=== PATIENT | male | born 1965 | race African-American/Black ===

== ENCOUNTER 2017-03-13 16:14 | Emergency (ER) | payer SELFPAY ==
[~2017-03-13] VITALS: Ht 195.6 cm; Wt 86.0 kg
[~2017-03-13 16:14] MED LIST: CEPHALEXIN500 MG OR; CLARITIN10 M2 PO; LORTAB 5 OR; NEXIUM40 M1 OR; NO HOME MEDS; NO MEDS
[2017-03-13 16:59] LABS: HEMATOCRIT 37.8 % (39.0-50.0); HEMOGLOBIN 12.9 g/dl (14.0-18.0); IMMATURE GRANULOCYTES 0.1 % (0.0-1.0); MEAN CELL VOLUME 89.2 fL CALC (80.0-100.0); MEAN CORPUSCULAR HGB 30.4 pG CALC (26.0-32.0); MEAN CORPUSCULAR HGB CONC 34.1 g/L CALC (32.0-36.0); NEUT# 4.11 thou/uL (1.82-7.42); RED BLOOD COUNT 4.24 mill/uL (4.70-6.10); RED CELL DISTRI WIDTH 13.8 % (11.5-15.5)
[2017-03-13 17:10] LABS: ALBUMIN 4.6 g/dL (3.2-5.0); ALKALINE PHOSPHATASE 95 u/l (38-126); ANION GAP 15 (6-22 (CALC)); BILIRUBIN, TOTAL 1.9 mg/dL (0.0-1.4); BUN 15 mg/dL (9-20); BUN/CREATININE RATIO 13 (12-20 (CALC)); CALCIUM 9.1 mg/dL (8.4-10.2); CARBON DIOXIDE 23 mmol/l (22-30); CHLORIDE 108 mmol/l (95-108); CREATININE 1.2 mg/dL (0.7-1.3); GFR > 60 ML/MIN (>=60 (CALC)); GFR FOR AFR.AMER. > 60 ML/MIN (>=60 (CALC)); GLUCOSE 90 mg/dL (75-110); SGOT/AST 69 u/l (17-59); SGPT/ALT < 6 u/l (21-72); SODIUM 141 mmol/l (137-146); TOTAL PROTEIN 8.7 g/dL (6.3-8.2)
[2017-03-13 17:14] LABS: POTASSIUM 5.2 mmol/l (3.5-5.1)
[2017-03-13 17:22] LABS: MYOGLOBIN 92 ng/mL (0 - 121)
[2017-03-13] MEDS ORDERED: ASPIRIN 81 LOW81 MG PO (17:42)
[2017-03-13 17:44] VITALS: BP 156/94
== END 2017-03-13 17:46 | disposition left against medical advice (07) | DRG 313 ==
LOC: ED 16:14
PROVIDERS: Emergency Medicine
DX: R07.9 Chest pain, unspecified (principal); I10 Essential (primary) hypertension; Z91.19 Patient's noncompliance with other medical treatment and regimen; R94.31 Abnormal electrocardiogram [ECG] [EKG]; F17.200 Nicotine dependence, unspecified, uncomplicated; R06.02 Shortness of breath

== ENCOUNTER 2018-09-20 15:02 | Observation (INO) | payer SELFPAY ==
[~2018-09-20] VITALS: Ht 195.6 cm; Wt 83.0 kg
[~2018-09-20 15:02] MED LIST changes: +ASPIRIN 81 LOW81 MG PO
--- NOTE | 2018-09-20 15:10 | NUR ---
PT IMMEDIATELY TO TX ROOM VIA WC. EKG PERFORMED AND DR PLEITEZ NOTIFIED OF PT STATUS. POSTERIOR EKG PERFORMED.
--- NOTE | 2018-09-20 15:17 | NUR ---
RIGHT SIDED EKG PERFORMED, DR PLEITEZ AT BEDSIDE
--- NOTE | 2018-09-20 15:25 | NUR ---
PT ADVISED OF CURRENT POC AND PENDING LAB RESULTS.
[2018-09-20 15:47] LABS: HEMATOCRIT 38.6 % (39.0-50.0); IMMATURE GRANULOCYTES 0.2 % (0.0-5.0); MEAN CELL VOLUME 91.9 fL CALC (80.0-100.0); MEAN CORPUSCULAR HGB CONC 33.7 g/L CALC (32.0-36.0); NEUT# 4.76 thou/uL (1.82-7.42); RED BLOOD COUNT 4.2 mill/uL (4.70-6.10); RED CELL DISTRI WIDTH 13.6 % (11.5-15.5)
[2018-09-20 15:54] LABS: ALKALINE PHOSPHATASE 63 u/l (38-126); BILIRUBIN, TOTAL 0.6 mg/dL (0.0-1.4); BUN 13 mg/dL (9-20); BUN/CREATININE RATIO 8 (12-20 (CALC)); CARBON DIOXIDE 27 mmol/l (22-30); CHLORIDE 111 mmol/l (95-108); CREATININE 1.7 mg/dL (0.7-1.3); GFR 43 ML/MIN (>=60 (CALC)); GFR FOR AFR.AMER. 51 ML/MIN (>=60 (CALC)); LIPASE 64 u/l (23-300); SGOT/AST 30 u/l (17-59); SODIUM 145 mmol/l (137-146); TOTAL PROTEIN 7.1 g/dL (6.3-8.2)
[2018-09-20 16:03] LABS: ANION GAP 11 (6-22 (CALC)); POTASSIUM 3.7 mmol/l (3.5-5.1)
--- NOTE | 2018-09-20 16:35 | NUR ---
PT REPORTS PAIN IS 6/10. ADVISED OF CONTINUED WAIT TIME, PT VERBALIZES UNDERSTANDING. CALL LIGHT IN REACH.
[2018-09-20 17:10] LABS: BARBITURATES NEGATIVE (NEGATIVE); COCAINE NEGATIVE (NEGATIVE); METHADONE NEGATIVE (NEGATIVE); TETRAHYDROCANNABIONOL POSITIVE (NEGATIVE); TRICYLIC ANTIDEPRESSANTS NEGATIVE (NEGATIVE)
[2018-09-20 17:11] LABS: OXCYCODONE NEGATIVE (NEGATIVE)
--- NOTE | 2018-09-20 17:29 | NUR ---
SECOND TROPONIN OBTAINED. PT ADVISED OF WAIT TIME. MEAL TRAY ORDERED FOR PT.
[2018-09-20] MEDS ORDERED: PROTONIX40 M2 PO (18:02)
--- NOTE | 2018-09-20 19:07 | NUR ---
REPORT PROVIDED TO NILDA NURSE ON [facility].
[2018-09-20 19:50] VITALS: BP 166/93
--- NOTE | 2018-09-20 19:50 | NUR ---
PT ARRIVED TO FLOOR AT 1910.PT ALERT AND ORIENTED. ABLE TO VOICE NEEDS. PT AMBULATORY. NO SKIN ISSUES NOTED. LUNGS CLLEAR IN ALL SINGER. PULSES STRNG. PT DENIED CHEST PAIN AT THIS TIME. TELE IN PLACE. ASSESSMENT COMPLETED. BED IN LOWEST POSITION AND CALL LIGHT WITHIN REACH
--- NOTE | 2018-09-20 19:50 | NUR ---
PT COND STGABLE. PT TO 283 WITH RN ON TELE.
[2018-09-21] VITALS (7 sets, daily range): BP systolic 135–165; BP diastolic 78–91
--- NOTE | 2018-09-21 04:37 | NUR ---
PT RESTING IN BED WITH EYES CLOSED. BED IN LOWST POSITION.
[2018-09-21 06:27] LABS: CHOLESTEROL HDL RATIO 3.4 (<4.4 (CALC)); MAGNESIUM 1.8 mg/dL (1.6-2.3)
--- NOTE | 2018-09-21 06:41 | NUR ---
T RESTING IN BED EYES CLOSED. PT DENIES CHEST PAIN. BED IN LOWEST POSITION. CALL LIGHT IN REACH.
--- NOTE | 2018-09-21 07:10 | NUR ---
REPORT RECEIVED FROM JORGE LUIS SALCEDO;PT APPEARS TO BE SLEEPING IN LEFT SIDE LAYING POSITION;RESPIRATIONS EVEN AND UNLABORED ON RA;NO S/S OF DISTRESS NOTED;TELE MONITOR IN PLACE;FALL PRECAUTIONS NOTED WITH BED IN THE LOWEST POSITION;CALL LIGHT IN REACH;WILL CONTINUE TO MONITOR
--- NOTE | 2018-09-21 08:25 | NUR ---
PT RESTING IN BED EATING BREAKFAST;VS OBTAINED AND ASSESSMENT COMPLETED;PT DENIES ANY CURRENT PAIN OR DISCOMFORTS,PAIN SCALE AND REPORTING EDUCATED;RESPIRATIONS EVEN AND UNLABORED ON RA,CLEAR LUNG SOUNDS;ABDOMEN SOFT ON PALPATION AND ACTIVE IN ALL 4 QUADRANTS;STRONG PEDAL PULSES;SKIN INTACT;TELE MONITOR IN PLACE;#18G TO LAC FLUSHED AND PATENT,SITE APPEARS HEALTHY;ALL SAFETY PRECAUTIONS REINFORCED WITH BED IN THE LOWEST POSITION;PT DENIES ANY ADDITIONAL NEEDS AT THIS TIME AND IS INSTRUCTED TO CALL FOR ASSISTANCE IF NEEDED;CALL LIGHT IN REACH;WILL CONTINUE TO MONITOR
--- NOTE | 2018-09-21 10:58 | NUR ---
AT BEDSIDE DISCUSSING POC.
--- NOTE | 2018-09-21 11:10 | NUR ---
PT RESTING AT BEDSIDE REQUESTING TO LEAVE FLOOR TO "WALK OUTSIDE";[place] EXPLAINED TO PT THAT TYPICALLY WE DO NOT ALLOW PT TO LEAVE THE UNIT,ESPECIALLY WITH A PAPER DELIVERER;PT VERBALIZES UNDERSTANDING;ENCOURAGED PT TO AMBULATE THE HALLWAYS;PT DENIES ANY CURRENT CHEST PRESSURE OR PAIN;RESPIRATIONS EVEN AND UNLABORED ON RA;TELE MONITOR IN PLACE;PT DENIES ANY ADDITIONAL NEEDS;ENCOURAGED TO CALL FOR ASSISTANCE IF NEEDED;CALL LIGHT IN REACH;WILL CONTINUE TO MONITOR
[2018-09-21 11:44] LABS: ANION GAP 9 (6-22 (CALC)); BUN 15 mg/dL (9-20); BUN/CREATININE RATIO 11 (12-20 (CALC)); CARBON DIOXIDE 25 mmol/l (22-30); CHLORIDE 113 mmol/l (95-108); CREATININE 1.4 mg/dL (0.7-1.3); GFR 53 ML/MIN (>=60 (CALC)); GFR FOR AFR.AMER. > 60 ML/MIN (>=60 (CALC)); SODIUM 142 mmol/l (137-146)
--- NOTE | 2018-09-21 12:12 | NUR ---
AT BEDSIDE DISCUSSING POC.
--- NOTE | 2018-09-21 13:38 | NUR ---
PT AMBULATING THE HALLWAYS WITH A STEADY GAIT
--- NOTE | 2018-09-21 14:19 | NUR ---
PT TRANSFERRED TO ULTRASOUND VIA WHEELCHAIR IN STABLE CONDITION
--- NOTE | 2018-09-21 14:40 | NUR ---
PT TRANSFERRED BACK TO ROOM VIA WHEELCHAIR IN STABLE CONDITION
--- NOTE | 2018-09-21 16:40 | NUR ---
PT APPEARS TO BE RESTING IN RIGHT SIDE LAYING POSITION,WAKES EASILY;RESPIRATIONS EVEN AND UNLABORED ON RA;PT DENIES ANY CURRENT PAIN OR DISCOMFORTS;IV SITE REMAINS PATENT TO LAC;TELE MONTIOR IN PLACE;ASSESSMENT UNCHANGED AT THIS TIME;ENCOURAGED TO CALL FOR ASSISTANCE IF NEEDED;CALL LIGHT IN REACH;WILL CONTINUE TO MONITOR
--- NOTE | 2018-09-21 19:30 | NUR ---
PATIENT RESTING IN BED TALKING ON THE PHONE. PATIENT DENIES ANY NEEDS AT THIS TIME. TELE MONITOR IN PLACE. HEP LOCK TO LEFT AC INTACT AND APPEARS HEALTHY AT THIS TIME. CALL LIGHT IN REACH.WILL CONT TO MONITOR.
--- NOTE | 2018-09-22 | NUR ---
PATIENT RESTING IN BED WITH NO COMPLAINTS AT THIS TIME EXCEPT THAT HE WANTS TO SLEEP. DENIES ANY PAIN OR SOB AT THIS TIME. TELE MONITOR IN PLACE. CALL LIGHT IN REACH. WILL CONT TO MONITOR.
[2018-09-22 00:08] VITALS: BP 165/86
--- NOTE | 2018-09-22 02:55 | NUR ---
APPEARS SLEEPING IN NO ACUTE DISTRESS. CONT TO BE SB ON TELE MONITOR. CALL LIGHT IN REACH. WILL CONT TO MONITOR.
[2018-09-22 05:20] VITALS: BP 152/85
[2018-09-22 05:34] LABS: ALBUMIN 3.3 g/dL (3.2-5.0); ALKALINE PHOSPHATASE 58 u/l (38-126); ANION GAP 9 (6-22 (CALC)); BILIRUBIN, TOTAL 0.5 mg/dL (0.0-1.4); BUN 14 mg/dL (9-20); BUN/CREATININE RATIO 10 (12-20 (CALC)); CARBON DIOXIDE 27 mmol/l (22-30); CHLORIDE 110 mmol/l (95-108); CREATININE 1.3 mg/dL (0.7-1.3); GFR 58 ML/MIN (>=60 (CALC)); GFR FOR AFR.AMER. > 60 ML/MIN (>=60 (CALC)); MAGNESIUM 1.7 mg/dL (1.6-2.3); POTASSIUM 4.4 mmol/l (3.5-5.1); SGOT/AST 20 u/l (17-59); SODIUM 141 mmol/l (137-146); TOTAL PROTEIN 6.1 g/dL (6.3-8.2)
[2018-09-22 05:38] LABS: HEMATOCRIT 37.8 % (39.0-50.0); HEMOGLOBIN 12.7 g/dl (14.0-18.0); IMMATURE GRANULOCYTES 0.2 % (0.0-5.0); MEAN CORPUSCULAR HGB 30.9 pG CALC (26.0-32.0); MEAN CORPUSCULAR HGB CONC 33.6 g/L CALC (32.0-36.0); NEUT# 2.25 thou/uL (1.82-7.42); RED BLOOD COUNT 4.11 mill/uL (4.70-6.10); RED CELL DISTRI WIDTH 13.3 % (11.5-15.5)
--- NOTE | 2018-09-22 07:10 | NUR ---
REPORT RECEIVED FROM JORGE LUIS TOMAS;PT APPEARS TO BE SLEEPING IN SEMI FOWLERS POSITION;RESPIRATIONS APPEAR EVEN AND UNLABORED ON RA;TELE MONITOR IN PLACE;FALL PRECAUTIONS IN PLACE WITH CALL LIGHT IN REACH;WILL CONTINUE TO MONITOR
--- NOTE | 2018-09-22 08:40 | NUR ---
PT RESTING IN SEMI FOWLERS POSITION WATCHING TV;VS OBTAINED AND ASSESSMENT COMPLETED;PT DENIES ANY CURRENT PAIN,PAIN SCALE AND REPORTING RE-EDUCATED;CURRENT BP 120/77 HR 50;RESPIRATIONS EVEN AND UNLABORED ON RA,CLEAR LUNG SOUNDS;ABDOMEN SOFT ON PALPATION AND ACTIVE IN ALL 4 QUADRANTS;#18G TO LAC FLUSHED AND PATENT,SITE APPEARS HEALTHY;TELE MONITOR IN PLACE;PT DENIES ANY ADDITIONAL NEEDS AT THIS TIME AND IS ENCOURAGED TO CALL FOR ASSISTANCE IF NEEDED;CALL LIGHT IN REACH;WILL CONTINUE TO MONITOR
[2018-09-22 08:43] VITALS: BP 120/77
--- NOTE | 2018-09-22 10:34 | NUR ---
PT AMBULATING THE HALLWAYS WITH A STEADY GAIT.
--- NOTE | 2018-09-22 11:00 | NUR ---
AT BEDSIDE DISCUSSING PLAN OF CARE INCLUDING DISCHARGE HOME.
--- NOTE | 2018-09-22 11:00 | NUR ---
PT RESTING IN BED WATCHING TV;RESPIRATIONS EVEN AND UNLABORED ON RA;PT DENIES ANY CURRENT PAIN OR DISCOMFORTS;TELE MONITOR IN PLACE;ASSESSMENT UNCHANGED AT THIS TIME;ENCOURAGED PT TO CALL FOR ASSISTANCE IF NEEDED;CALL LIGHT IN REACH;WILL CONTINUE TO MONITOR
[2018-09-22 11:33] VITALS: BP 161/84
[2018-09-22] MEDS ORDERED: LISINOPRIL5 MG PO (11:50)
[2018-09-22] MEDS ORDERED: AMLODIPINE5 MG PO (11:50)
[2018-09-22 15:26] VITALS: BP 148/94
--- NOTE | 2018-09-22 16:30 | NUR ---
PT AMBULATING THE HALLWAYS WITH A STEADY GAIT;DENIES ANY CURRENT PAIN OR DISCOMFORTS;RESPIRATIONS EVEN AND UNLABORED ON RA;TELE MONITOR IN PLACE;PT INSTRUCTED TO CALL FOR ASSISTANCE IF NEEDED;CALL LIGHT IN REACH;WILL CONTINUE TO MONITOR
--- NOTE | 2018-09-22 18:00 | NUR ---
ALL DISCHARGE INSTRUCTIONS PROVIDED AT THIS TIME;PRESCRIPTIONS DISCUSSED INDEPTH AND PT ENCOURAGED TO FOLLOW UP WITH AND ;IV SITE REMOVED WITH CATHETER INTACT;PT DENIES ANY ADDITIONAL NEEDS AND DENIES THE NEED FOR A WHEELCHAIR FOR DISCHARGE HOME
--- NOTE | 2018-09-22 18:02 | NUR ---
PT TRANSFERRED TO [facility] VIA WHEELCHAIR IN STABLE CONDITION ACCOMPANIED BY JESE ALVARADO
--- NOTE | 2018-09-22 19:05 | NUR ---
Discharge instructions given. Patient verbalizes understanding of same. Discharged in stable condition via Ambulatory to Home with *Other. All belongings sent with pt.
== END 2018-09-22 19:05 | disposition home or self-care (01) | DRG 305 ==
LOC: ED 15:02 → ED-I 18:02 → ED 18:26 → MS2 18:27
PROVIDERS: Emergency Medicine; Internal Medicine Nephrology; ADMIT Internal Medicine; ATTEND Internal Medicine
DX: I10 Essential (primary) hypertension (principal); N17.9 Acute kidney failure, unspecified; F17.210 Nicotine dependence, cigarettes, uncomplicated; Z91.14 Patient's other noncompliance with medication regimen
CPT/HCPCS: G0378

== ENCOUNTER 2018-10-29 23:47 | Observation (INO) | payer SELFPAY ==
[~2018-10-29] VITALS: Ht 195.6 cm; Wt 78.5 kg
[~2018-10-29 23:47] MED LIST changes: +AMLODIPINE5 MG PO; +LISINOPRIL5 MG PO; +PROTONIX40 M2 PO
[2018-10-30] MEDS ORDERED: LISINOPRIL2.5 MG PO (00:14)
[2018-10-30 00:56] LABS: HEMATOCRIT 39.4 % (39.0-50.0); HEMOGLOBIN 12.9 g/dl (14.0-18.0); IMMATURE GRANULOCYTES 0.2 % (0.0-5.0); MEAN CELL VOLUME 92.9 fL CALC (80.0-100.0); MEAN CORPUSCULAR HGB 30.4 pG CALC (26.0-32.0); MEAN CORPUSCULAR HGB CONC 32.7 g/L CALC (32.0-36.0); NEUT# 6.6 thou/uL (1.82-7.42); RED BLOOD COUNT 4.24 mill/uL (4.70-6.10); RED CELL DISTRI WIDTH 13.2 % (11.5-15.5)
[2018-10-30 01:12] LABS: ACT PARTIAL THROMBO TIME 32.6 SECONDS (20.0-32.5); PROTHROMBIN TIME 10.9 SECONDS (9.0-12.5)
[2018-10-30 01:14] LABS: ALBUMIN 3.9 g/dL (3.2-5.0); ALKALINE PHOSPHATASE 74 u/l (38-126); AMYLASE 90 u/l (30-110); ANION GAP 10 (6-22 (CALC)); BILIRUBIN, TOTAL 0.7 mg/dL (0.0-1.4); BUN 16 mg/dL (9-20); BUN/CREATININE RATIO 12 (12-20 (CALC)); CARBON DIOXIDE 27 mmol/l (22-30); CHLORIDE 107 mmol/l (95-108); CREATININE 1.4 mg/dL (0.7-1.3); GFR 53 ML/MIN (>=60 (CALC)); GFR FOR AFR.AMER. > 60 ML/MIN (>=60 (CALC)); LIPASE 76 u/l (23-300); POTASSIUM 3.6 mmol/l (3.5-5.1); SGOT/AST 26 u/l (17-59); SODIUM 141 mmol/l (137-146); TOTAL PROTEIN 7.2 g/dL (6.3-8.2)
[2018-10-30 01:25] LABS: MYOGLOBIN 85 ng/mL (0 - 121)
[2018-10-30 02:12] LABS: URINE BILIRUBIN - DIPSTICK NEGATIVE (NEGATIVE); URINE BLOOD DIPSTICK TRACE-LYSED (NEGATIVE); URINE CLARITY CLEAR; URINE COLOR YELLOW; URINE GLUCOSE - DIPSTICK NEGATIVE (NEGATIVE); URINE KETONE NEGATIVE (NEGATIVE); URINE LEUK ESTERASE NEGATIVE (NEGATIVE); URINE NITRITE - DIPSTICK NEGATIVE (Negative); URINE PROTEIN - DIPSTICK NEGATIVE (NEG-TRACE); URINE UROBILINOGEN - DIPSTICK 0.2 E.U./dL (0.2)
[2018-10-30 02:19] LABS: BARBITURATES NEGATIVE (NEGATIVE); COCAINE NEGATIVE (NEGATIVE); METHADONE NEGATIVE (NEGATIVE); OXCYCODONE NEGATIVE (NEGATIVE); TETRAHYDROCANNABIONOL NEGATIVE (NEGATIVE); TRICYLIC ANTIDEPRESSANTS NEGATIVE (NEGATIVE)
[2018-10-30 09:04] VITALS: BP 169/92
== END 2018-10-30 10:00 | DRG 313 ==
LOC: ED 23:47 → ED-I 10-30 02:30 → ED 10-30 03:31 → ED-I 10-30 03:32
PROVIDERS: Emergency Medicine; ADMIT Internal Medicine Nephrology; ATTEND Internal Medicine Nephrology
DX: R07.9 Chest pain, unspecified (principal); R45.851 Suicidal ideations; I10 Essential (primary) hypertension; F17.210 Nicotine dependence, cigarettes, uncomplicated
CPT/HCPCS: J2060; S0164

== ENCOUNTER 2019-12-25 23:58 | Inpatient (IN) | payer BC ==
[~2019-12-25] VITALS: Ht 193 cm; Wt 91.2 kg
[~2019-12-25 23:58] MED LIST changes: +LISINOPRIL2.5 MG PO
[2019-12-26] VITALS (7 sets, daily range): BP systolic 122–182; BP diastolic 69–96
[2019-12-26 01:04] LABS: HEMATOCRIT 39.1 % (39.0-50.0); HEMOGLOBIN 12.8 g/dl (14.0-18.0); IMMATURE GRANULOCYTES 0.2 % (0.0-5.0); MEAN CELL VOLUME 91.6 fL CALC (80.0-100.0); MEAN CORPUSCULAR HGB CONC 32.7 g/L CALC (32.0-36.0); NEUT# 4.37 thou/uL (1.82-7.42); RED BLOOD COUNT 4.27 mill/uL (4.70-6.10); RED CELL DISTRI WIDTH 14.3 % (11.5-15.5)
[2019-12-26 01:24] LABS: ACT PARTIAL THROMBO TIME 27.8 SECONDS (20.0-32.5)
[2019-12-26 01:26] LABS: ALBUMIN 3.7 g/dL (3.2-5.0); ALKALINE PHOSPHATASE 80 u/l (38-126); ANION GAP 9 (6-22 (CALC)); BUN 17 mg/dL (9-20); BUN/CREATININE RATIO 13 (12-20 (CALC)); CARBON DIOXIDE 29 mmol/l (22-30); CHLORIDE 108 mmol/l (95-108); CREATININE 1.3 mg/dL (0.7-1.3); ETHYL ALCOHOL 0 mg/dl (0-30); GFR 58 ML/MIN (>=60 (CALC)); GFR FOR AFR.AMER. > 60 ML/MIN (>=60 (CALC)); MAGNESIUM 1.8 mg/dL (1.6-2.3); POTASSIUM 4.3 mmol/l (3.5-5.1); SGOT/AST 30 u/l (17-59); SODIUM 142 mmol/l (137-146)
[2019-12-26 01:37] LABS: BILIRUBIN, TOTAL 0.2 mg/dL (0.0-1.4)
[2019-12-26 01:48] LABS: URINE BILIRUBIN - DIPSTICK NEGATIVE (NEGATIVE); URINE BLOOD DIPSTICK NEGATIVE (NEGATIVE); URINE COLOR YELLOW; URINE GLUCOSE - DIPSTICK NEGATIVE (NEGATIVE); URINE KETONE NEGATIVE (NEGATIVE); URINE LEUK ESTERASE NEGATIVE (NEGATIVE); URINE NITRITE - DIPSTICK NEGATIVE (Negative); URINE PH 6.5 (4.5-8.0); URINE PROTEIN - DIPSTICK NEGATIVE (NEG-TRACE); URINE UROBILINOGEN - DIPSTICK 0.2 E.U./dL (0.2)
[2019-12-26 01:54] LABS: BARBITURATES NEGATIVE (NEGATIVE); COCAINE NEGATIVE (NEGATIVE); METHADONE NEGATIVE (NEGATIVE); OXCYCODONE NEGATIVE (NEGATIVE); TETRAHYDROCANNABIONOL POSITIVE (NEGATIVE); TRICYLIC ANTIDEPRESSANTS NEGATIVE (NEGATIVE)
[2019-12-26 15:14] LABS: CHOLESTEROL HDL RATIO 4.3 (<4.4 (CALC))
[2019-12-27 03:21] VITALS: BP 146/85
[2019-12-27 05:27] LABS: HEMATOCRIT 38.2 % (39.0-50.0); HEMOGLOBIN 12.6 g/dl (14.0-18.0); IMMATURE GRANULOCYTES 0.3 % (0.0-5.0); MEAN CELL VOLUME 90.1 fL CALC (80.0-100.0); MEAN CORPUSCULAR HGB 29.7 pG CALC (26.0-32.0); NEUT# 3.18 thou/uL (1.82-7.42); RED BLOOD COUNT 4.24 mill/uL (4.70-6.10); RED CELL DISTRI WIDTH 14.2 % (11.5-15.5)
[2019-12-27 05:47] LABS: ANION GAP 11 (6-22 (CALC)); BUN 16 mg/dL (9-20); BUN/CREATININE RATIO 12 (12-20 (CALC)); CARBON DIOXIDE 24 mmol/l (22-30); CHLORIDE 108 mmol/l (95-108); CREATININE 1.4 mg/dL (0.7-1.3); GFR 53 ML/MIN (>=60 (CALC)); GFR FOR AFR.AMER. > 60 ML/MIN (>=60 (CALC)); MAGNESIUM 1.8 mg/dL (1.6-2.3); POTASSIUM 4.2 mmol/l (3.5-5.1); SODIUM 138 mmol/l (137-146)
[2019-12-27 07:36] VITALS: BP 160/98
[2019-12-27 11:24] VITALS: BP 196/88
[2019-12-27 15:36] VITALS: BP 177/97
[2019-12-27] MEDS ORDERED: ATORVASTATIN CA40 MG PO (17:44)
[2019-12-27] MEDS ORDERED: ASPIRIN EC325 M1 PO (17:44)
[2019-12-27] MEDS ORDERED: AMLODIPINE BESYL5 MG PO (17:45)
== END 2019-12-27 18:16 | disposition home or self-care (01) | DRG 65 ==
LOC: ED 23:58 → ED-I 23:59 → ED 23:59 → ED-I 12-26 01:58 → ED 12-26 02:32 → MS2 12-26 02:33
PROVIDERS: Nurse Practitioner Family; ADMIT Internal Medicine; ATTEND Internal Medicine
DX: I63.89 Other cerebral infarction (principal); N17.9 Acute kidney failure, unspecified; R20.0 Anesthesia of skin; I10 Essential (primary) hypertension; E78.5 Hyperlipidemia, unspecified; F17.290 Nicotine dependence, other tobacco product, uncomplicated; T46.5X6A Underdosing of other antihypertensive drugs, initial encounter; T46.6X6A Underdosing of antihyperlipidemic and antiarteriosclerotic drugs, initial encounter; Z91.128 Patient's intentional underdosing of medication regimen for other reason; Z86.73 Personal history of transient ischemic attack (TIA), and cerebral infarction without residual deficits
CPT/HCPCS: A9579; Q9967

== ENCOUNTER 2020-02-11 | Emergency (ER) | payer BC ==
[~2020-02-11] MED LIST changes: +AMLODIPINE BESYL5 MG PO; +ASPIRIN EC325 M1 PO; +ATORVASTATIN CA40 MG PO
[2020-02-12 00:19] LABS: HEMATOCRIT 36.1 % (39.0-50.0); IMMATURE GRANULOCYTES 0.1 % (0.0-5.0); MEAN CELL VOLUME 91.9 fL CALC (80.0-100.0); MEAN CORPUSCULAR HGB 30.5 pG CALC (26.0-32.0); MEAN CORPUSCULAR HGB CONC 33.2 g/L CALC (32.0-36.0); NEUT# 3.57 thou/uL (1.82-7.42); RED BLOOD COUNT 3.93 mill/uL (4.70-6.10); RED CELL DISTRI WIDTH 14.6 % (11.5-15.5)
[2020-02-12 00:28] LABS: ACT PARTIAL THROMBO TIME 28.5 SECONDS (20.0-32.5); ALBUMIN 3.7 g/dL (3.2-5.0); ALKALINE PHOSPHATASE 73 u/l (38-126); ANION GAP 8 (6-22 (CALC)); BUN 15 mg/dL (9-20); BUN/CREATININE RATIO 9 (12-20 (CALC)); CARBON DIOXIDE 26 mmol/l (22-30); CHLORIDE 110 mmol/l (95-108); CREATININE 1.6 mg/dL (0.7-1.3); GFR 45 ML/MIN (>=60 (CALC)); GFR FOR AFR.AMER. 55 ML/MIN (>=60 (CALC)); POTASSIUM 3.8 mmol/l (3.5-5.1); PROTHROMBIN TIME 10.5 SECONDS (9.0-12.5); SGOT/AST 34 u/l (17-59); SODIUM 140 mmol/l (137-146); TOTAL PROTEIN 6.8 g/dL (6.3-8.2)
[2020-02-12 00:30] LABS: URINE BILIRUBIN - DIPSTICK NEGATIVE (NEGATIVE); URINE BLOOD DIPSTICK TRACE-INTACT (NEGATIVE); URINE CLARITY CLEAR; URINE COLOR YELLOW; URINE GLUCOSE - DIPSTICK NEGATIVE (NEGATIVE); URINE KETONE NEGATIVE (NEGATIVE); URINE LEUK ESTERASE NEGATIVE (Negative); URINE NITRITE - DIPSTICK NEGATIVE (Negative); URINE PH 5.5 (4.5-8.0); URINE PROTEIN - DIPSTICK NEGATIVE (NEG-TRACE); URINE SPECIFIC GRAVITY 1.025; URINE UROBILINOGEN - DIPSTICK 0.2 E.U./dL (0.2)
[2020-02-12 00:33] LABS: BARBITURATES NEGATIVE (NEGATIVE); COCAINE NEGATIVE (NEGATIVE); METHADONE NEGATIVE (NEGATIVE); OXCYCODONE NEGATIVE (NEGATIVE); TETRAHYDROCANNABIONOL POSITIVE (NEGATIVE); TRICYLIC ANTIDEPRESSANTS NEGATIVE (NEGATIVE)
[2020-02-12 00:41] LABS: BILIRUBIN, TOTAL 0.3 mg/dL (0.0-1.4); MYOGLOBIN 97 ng/mL (0 - 121)
== END 2020-02-12 04:17 | disposition home or self-care (01) | DRG 305 ==
PROVIDERS: Emergency Medicine
DX: I10 Essential (primary) hypertension (principal); R11.0 Nausea; I69.951 Hemiplegia and hemiparesis following unspecified cerebrovascular disease affecting right dominant side; F17.200 Nicotine dependence, unspecified, uncomplicated

== ENCOUNTER 2020-10-04 01:07 | Inpatient (IN) | payer BC ==
[2020-10-04] VITALS (31 sets, daily range): BP systolic 131–195; BP diastolic 59–109
[~2020-10-04] VITALS: Ht 193 cm; Wt 91.0 kg
--- NOTE | 2020-10-04 01:10 | NUR ---
STROKE ALERT CALLED, PT TO CT.
[2020-10-04 01:40] LABS: HEMATOCRIT 38.8 % (39.0-50.0); HEMOGLOBIN 12.6 g/dl (14.0-18.0); IMMATURE GRANULOCYTES 0.3 % (0.0-5.0); MEAN CELL VOLUME 91.5 fL CALC (80.0-100.0); MEAN CORPUSCULAR HGB 29.7 pG CALC (26.0-32.0); MEAN CORPUSCULAR HGB CONC 32.5 g/dL CAL (32.0-36.0); NEUT# 3.31 thou/uL (1.82-7.42); RED BLOOD COUNT 4.24 mill/uL (4.70-6.10); RED CELL DISTRI WIDTH 13.7 % (11.5-15.5)
[2020-10-04 01:51] LABS: ALBUMIN 3.9 g/dL (3.2-5.0); ALKALINE PHOSPHATASE 75 u/l (38-126); ANION GAP 10 (6-22 (CALC)); BILIRUBIN, TOTAL 0.4 mg/dL (0.0-1.4); BUN 15 mg/dL (9-20); BUN/CREATININE RATIO 10 (12-20 (CALC)); CARBON DIOXIDE 28 mmol/l (22-30); CHLORIDE 109 mmol/l (95-108); CREATININE 1.5 mg/dL (0.7-1.3); GFR 49 ML/MIN (>=60 (CALC)); GFR FOR AFR.AMER. 59 ML/MIN (>=60 (CALC)); POTASSIUM 3.9 mmol/l (3.5-5.1); SGOT/AST 27 u/l (17-59); SODIUM 143 mmol/l (137-146); TOTAL PROTEIN 7.2 g/dL (6.3-8.2)
[2020-10-04 01:57] LABS: ACT PARTIAL THROMBO TIME 26.7 SECONDS (20.0-32.5); INTERNATIONAL NORMALIZED RATIO 1.1 RATIO (0.7-1.3)
[2020-10-04 02:03] LABS: MYOGLOBIN 84 ng/mL (0 - 121)
--- NOTE | 2020-10-04 02:10 | NUR ---
PATIENT COMPLETED, CT, CTA, CHEST XRAY, NO C/O PAIN OR DISCOMFORT, NO S/S OF DISTRESS NOTED, RESPIRATIONS EVEN AND UNLABORED, AWAITING DIAGNOSTIC RESULTS. FAMILY AT BEDSIDE.
[2020-10-04 02:43] LABS: URINE BILIRUBIN - DIPSTICK NEGATIVE (NEGATIVE); URINE BLOOD DIPSTICK TRACE-INTACT (NEGATIVE); URINE COLOR YELLOW; URINE GLUCOSE - DIPSTICK NEGATIVE (NEGATIVE); URINE KETONE NEGATIVE (NEGATIVE); URINE LEUK ESTERASE NEGATIVE (NEGATIVE); URINE NITRITE - DIPSTICK NEGATIVE (Negative); URINE PROTEIN - DIPSTICK NEGATIVE (NEG-TRACE); URINE SPECIFIC GRAVITY 1.015; URINE UROBILINOGEN - DIPSTICK 0.2 E.U./dL (0.2)
[2020-10-04 03:40] LABS: CHOLESTEROL HDL RATIO 4.4 (<4.4 (CALC))
--- NOTE | 2020-10-04 03:45 | NUR ---
PATIENT IMMEDIATELY TO CT SCAN FOR STROKE ALERT. PT AWAKE AND ALERT, AMBULATORY WITHOUT ASSITANCE, C/O TINGLING AND WEAKNESS TO RIGHT SIDE STARTING THIS MORNING AT 7AM WHILE HE WAS IN [place], PATIENT THEN FLEW BACK TO [place] THIS AFTERNOON BEFORE COMING TOT [facility].
--- NOTE | 2020-10-04 04:04 | NUR ---
CARDENE DRIP TITRATED TO 7.5MG/HR, 700 CC OF CLEAR YELLOW URINE EMPTIED FROM URINAL, PATIENT REPORTS LESS TINGLING IN RIGHT SIDED EXTREMITIES.
--- NOTE | 2020-10-04 05:35 | NUR ---
PATIENT RESTING QUIETLY AT THIS TIME, NO C/O PAIN OR DISCOMFORT, NO S/S OF DISTRESS NOTED, RESPIRATIONS EVEN AND UNALBORED, AWAITING INPATIENT BED ASSIGNMENT.
--- NOTE | 2020-10-04 06:42 | NUR ---
PATIENT RESTING QUIETLY AT THIS TIME, NO C/O PAIN OR DISCOMFORT, NO S/S OF DISTRESS NOTED, RESPIRATIONS EVEN AND UNLABORED, AWAITING INPATIENT ROOM ASSIGNMENT.
--- NOTE | 2020-10-04 06:54 | NUR ---
HAND OFF REPORT GIVEN TO DOMINGUEZ, ICU FOR INPATIENT BED ASSIGNMENT, PATIENT AWAKE AND ALERT, NO C/O PAIN, NO S/S OF DISTRESS NOTED, RESPIRATIONS EVEN AND UNLABORED.
--- NOTE | 2020-10-04 07:09 | NUR ---
HAND OFF REPORT GIVEN TO JAMAAL
--- NOTE | 2020-10-04 08:00 | NUR ---
PT RESTING ON STRETCHER WITH EYES CLOSED. RESP EVEN AND UNLABORED. SKIN WARM AND DRY. CARDENE GTT INFUSING AT 5MG/HR W/O DIFFICULTY. AWAITING FOR ICU ROOM.
--- NOTE | 2020-10-04 09:00 | NUR ---
PT TO ICU BED 2 VIA STRETCHER ACCOMPANIED BY ER NURSE. PT AMBULATED FROM STRETCHER TO BED. ADMISSION ASSESSMENT COMPLETED. NIH COMPLETED. IV PATENT X1 WITH CARDENE GTT INFUSING. ORIENTED PT TO ROOM AND CALL LIGHT SYSTEM. CALL LIGHT IN REACH. WILL CONTINUE TO MONITOR.
--- NOTE | 2020-10-04 09:00 | NUR ---
PT TRANSPORTED TO ICU VIA STRETCHER, TRANSFERED INDEP. TO ICU STRETCHER, NO DEFICITS
--- NOTE | 2020-10-04 09:15 | NUR ---
DR SIERRA AT BEDSIDE AT THIS TIME.
--- NOTE | 2020-10-04 10:16 | NUR ---
PHYSICAL THERAPY AT BEDSIDE AT THIS TIME.
--- NOTE | 2020-10-04 10:45 | NUR ---
PT TO RADIOLOGY FOR MRI/MRA VIA WHEELCHAIR. PT ABLE TO TRANSFER WELL.
--- NOTE | 2020-10-04 12:00 | NUR ---
PT RETURNED FROM RADIOLOGY VIA . PT IN STABLE CONDITION ASSISTED BACK TO BED PLACED ON [facility].
--- NOTE | 2020-10-04 12:20 | NUR ---
EKG CHANGES NOTED. ORDERS PLACED FOR STAT EKG AND TROPONIN
--- NOTE | 2020-10-04 12:37 | NUR ---
RT AT BEDSIDE FOR EKG
--- NOTE | 2020-10-04 12:41 | NUR ---
LAB AT BEDSIDE FOR STAT TROPONIN
--- NOTE | 2020-10-04 12:50 | NUR ---
DR SIERRA NOTIFIED OF STOVE POLISHER CHANGES.
--- NOTE | 2020-10-04 12:57 | NUR ---
SPEECH THERAPY AT BEDSIDE AT THIS TIME.
--- NOTE | 2020-10-04 14:00 | NUR ---
PT RESTING IN BED WITH EYES CLOSED. RESP ARE EVEN AND UNLABORED. NO DISTRESS NOTED. CALL LIGHT IN REACH. WILL CONTINUE TO MONTIOR.
--- NOTE | 2020-10-04 15:59 | NUR ---
PT RESTING IN BED. VSS ON MONITOR. SPUSE PHONED FOR UPDATE. UPDATE PROVIDED. CALL LIGHT IN REACH. WILL CONTINUE TO MONITOR
--- NOTE | 2020-10-04 17:27 | NUR ---
PT SET UP FOR PM MEAL AT THIS TIME.
--- NOTE | 2020-10-04 19:45 | NUR ---
PATIENT IS AWAKE, ORIENTED X4. NIH SCORE 1 FOR NUMBNESS/DECREASED SENSATION, NO DRIFT NOTED ON RIGHT SIDE EXTREMETIES. R-HAND ASSEMBLER FOR PULLER OVER IS WEAK. SR ON TELEMETRY. NO SOB NOTED, ON RA. RAC 18 G IV INTACT, CARDENE DRIP AT 7.5 MG/HR. NURSE ASSESSMENT PERFORMED. IS UP AD NASIR. NO GAIT PROBLEMS. CALL LIGHT WITHIN REACH.
--- NOTE | 2020-10-04 20:09 | NUR ---
CARDENE WEANED TO 5 ML/HR FOR BP 140'S SYTOLIC.
--- NOTE | 2020-10-04 21:20 | NUR ---
PATIENT ABLE TO TOLERATE LOVENOX INJECTION. NO ACUTE DISTRESS SHOWN. NO COMPLAINT SOR NEEDS AT THIS TIME. CALL LIGHT WITHIN REACH.
--- NOTE | 2020-10-04 23:47 | NUR ---
PATIENT RESTS WITH EYES CLOSED, NO ACUTE DISTRESS SHOWN. CARDENE DRIP TURNED OFF, BP 130'S SYSTOLIC. CALL LIGHT WITHIN REACH.
[2020-10-05] VITALS (15 sets, daily range): BP systolic 129–194; BP diastolic 60–102
--- NOTE | 2020-10-05 03:11 | NUR ---
PT BECOMES UPSET ABOUT IV BEEPING, HE REQUESTS TO HAVE IT TURNED OFF, PT WAS EXPLAINED IMPORTANCE OF MEDICATION.
--- NOTE | 2020-10-05 04:24 | NUR ---
PATIENT UP TO RESTROOM.
[2020-10-05 04:57] LABS: CHOLESTEROL HDL RATIO 5.4 (<4.4 (CALC)); MAGNESIUM 1.8 mg/dL (1.6-2.3)
--- NOTE | 2020-10-05 06:04 | NUR ---
CARDENE DRIP AT 5 MG/HR FOR BP 180'S SYSTOLIC.
--- NOTE | 2020-10-05 10:08 | NUR ---
PT RESTING QUIETLY ON BED, TALKING WITH ON PHONE, AT THIS TIME CARDENE DRIP HAS BEEN STOPPED, WILL SEE IF B/P REMAINS NORMAL AND MEDICATIONS WILL HELP, PT STATES HAS BEEN OUT OF HIS BLOOD PRESSURE MEDICATIONS FOR OVER A WEEK, NO NOTICEABLE WEAKNESS ON RIGHT SIDE, PT STATES IT IS BETTER AT THIS TIME
--- NOTE | 2020-10-05 10:29 | NUR ---
Physical Therapy Note Patient identified by name and date of . Attempted to see patient for physical therapy. However, patient's blood pressure is 159/101. Pulse rate is 63 bpm and S02 was 96% Asked the patient how he is feeling, patient expressed that he feels okay. Remained with the patient for several minutes but blood pressure remained the same. Patient will be rescheduled next week for physical therapy.
--- NOTE | 2020-10-05 10:52 | NUR ---
AT BEDSIDE, VITAL SIGNS STABLE. CARDENE DRIP REMAINS STOPPED , B/P 126/80
--- NOTE | 2020-10-05 12:53 | NUR ---
PT RESTING QUIETLY ON BED, FAMILY AT BEDSIDE. SITTING UP WATCHING TV. NO COMPLAINTS AT THIS TIME.
--- NOTE | 2020-10-05 14:02 | NUR ---
PT RESTING QUIETLY ON BED, WATCHING TV, VITAL SIGNS STABLE. BLOOD PRESSURE REMAINS WITHIN NORMAL RANGE. NO NEW WEAKNESS, STRONG MOHINI HAND GRASPS, NO WEAKNESS TO EITHER SIDE.
--- NOTE | 2020-10-05 16:45 | NUR ---
CALLED FOR ROOM FOR MED SURG TELE TRANSFER.
--- NOTE | 2020-10-05 17:16 | NUR ---
REPORT GIVEN TO MED SURG NURSE FOR CONTINUATION OF CARE.
--- NOTE | 2020-10-05 17:17 | NUR ---
PT TO BE TAKEN TO MED SURG PER W/C AND WILL HAVE TELE ONCE THERE.
--- NOTE | 2020-10-05 17:41 | NUR ---
REPORT WAS RECEIVED FROM JORGE LUIS NORWOOD. PT CAME TO THE FLOOR VIA WHEELCHAIR BY [facility]. TELE IN PLACE. TELE # [id number]. PER ER TELE READING SB 51. PT DENIES PAIN AT THIS TIME. PT STATED HE DOES NOT FEEL WEAK. PT STATED RIGHT ARM NUMBNESS IS GETTING BETTER. MOHINI STRONG LOCATOR IN HANDS. SAFETY PRECAUTIONS REINFORCED AND CALL LIGHT IN REACH.
--- NOTE | 2020-10-05 20:00 | NUR ---
PATIENT RESTING IN BED AFTER TAKING SHOWER. PATIENT DENIES ANY PAIN OR DISCOMFORT. AWAKE ALERT AND ORIENTEDX3. NO COMPLAINTS. SALOINE LOCK INTACT TO LAC-SITE APPEARS HEALTHY AT THIS TIME. TELE MONITOR IN PLACE. STATES ;LAST BM WAS 10/03-DECLINES AND LAX AT THIS TIME. DENIES ANY DIFFICULTY WITH URINATION. LUNGS ARE CLEAR. SAFETY PRECATUIONS REINFORCED. CALL LIGHT IN REACH. WILL CONT TO MONITOR.
--- NOTE | 2020-10-05 23:59 | NUR ---
PATIENT RESTING IN BED WITH EYES CLOSED. RESPS ARE EVEN AND UNLABORED. TELE MONITOR IN PLACE. SALINE LOCK INTACT TO LAC SITE. CALL LIGHT IN REACH. WILL CONT TO MONITOR.
[2020-10-06] VITALS: BP 160/85
[2020-10-06 04:00] VITALS: BP 132/73
--- NOTE | 2020-10-06 04:13 | NUR ---
PATIENT APPEARS SLEEPING WITH EYES CLOSED. RESPS EVEN AND UNLABORED. TELE MONITOR IN PLACE. SALINE LOCK INTACT TO LAC. CALL LIGHT IN REACH. WILL CONT TO MONITOR.
[2020-10-06 06:06] LABS: CREATININE 1.5 mg/dL (0.7-1.3)
[2020-10-06 10:30] VITALS: BP 148/75
--- NOTE | 2020-10-06 11:12 | NUR ---
PATIENT RESTING COMFORTABLY. DR PAYTON MORA AND STATED PATIENT WILL MOST LIKELY DC TODAY.
[2020-10-06] MEDS ORDERED: LOSARTAN POTASS25 MG PO (11:17)
[2020-10-06] MEDS ORDERED: ASPIRIN CHEWABL81 MG PO (11:17)
[2020-10-06] MEDS ORDERED: LABETALOL HYDR100 MG PO (11:19)
[2020-10-06] MEDS ORDERED: ATORVASTATIN CA40 MG PO (11:19)
--- NOTE | 2020-10-06 12:43 | NUR ---
PATIENT DISCHARGED TO HOME. REFUSED WHEELCHAIR. NO SCRIPTS GIVEN TO PAITNET AND PATIENT AWARE TO FOLLOW UP WITH PCP ON WEDNESDAY
== END 2020-10-06 12:49 | disposition home or self-care (01) | DRG 69 ==
LOC: ED 01:07 → ED-I 03:05 → ED 03:10 → ED-I 03:11 → ICU 03:11 → MS2 10-05 17:39
PROVIDERS: Family Medicine; Internal Medicine; ADMIT Internal Medicine; ATTEND Internal Medicine
DX: G45.9 Transient cerebral ischemic attack, unspecified (principal); I16.1 Hypertensive emergency; I12.9 Hypertensive chronic kidney disease with stage 1 through stage 4 chronic kidney disease, or unspecified chronic kidney disease; N18.30 Chronic kidney disease, stage 3 unspecified; F17.210 Nicotine dependence, cigarettes, uncomplicated; Z20.828 Contact with and (suspected) exposure to other viral communicable diseases; Z91.14 Patient's other noncompliance with medication regimen
CPT/HCPCS: J1650; Q9967

== ENCOUNTER 2021-02-21 03:46 | Emergency (ER) | payer OTHER, BC ==
[~2021-02-21] VITALS: Ht 193 cm; Wt 93.0 kg
[~2021-02-21 03:46] MED LIST changes: +ASPIRIN CHEWABL81 MG PO; +LABETALOL HYDR100 MG PO; +LOSARTAN POTASS25 MG PO
[2021-02-21 04:09] LABS: HEMATOCRIT 38.4 % (39.0-50.0); HEMOGLOBIN 12.3 g/dl (14.0-18.0); IMMATURE GRANULOCYTES 0.3 % (0.0-5.0); MEAN CELL VOLUME 91.4 fL CALC (80.0-100.0); MEAN CORPUSCULAR HGB 29.3 pG CALC (26.0-32.0); NEUT# 3.86 thou/uL (1.82-7.42); RED BLOOD COUNT 4.2 mill/uL (4.70-6.10); RED CELL DISTRI WIDTH 13.2 % (11.5-15.5)
[2021-02-21 04:26] LABS: CREATININE 1.7 mg/dL (0.7-1.3); POTASSIUM 3.8 mmol/l (3.5-5.1); TOTAL PROTEIN 7.3 g/dL (6.3-8.2)
[2021-02-21 04:27] LABS: BILIRUBIN, TOTAL 0.7 mg/dL (0.0-1.4)
[2021-02-21 04:29] LABS: ACT PARTIAL THROMBO TIME 25.2 SECONDS (20.0-32.5); PROTHROMBIN TIME 10.6 SECONDS (9.0-12.5)
[2021-02-21 04:37] LABS: D-DIMER 0.54 mg/L (0.19-0.60)
[2021-02-21] MEDS ORDERED: TORADOL PO (05:16)
[2021-02-21 05:20] VITALS: BP 155/75
== END 2021-02-21 05:20 | DRG 305 ==
LOC: ED 03:46
PROVIDERS: Family Medicine
DX: I10 Essential (primary) hypertension (principal); T46.5X6A Underdosing of other antihypertensive drugs, initial encounter; F17.200 Nicotine dependence, unspecified, uncomplicated; Z91.128 Patient's intentional underdosing of medication regimen for other reason; Z20.822 Contact with and (suspected) exposure to COVID-19